=== PATIENT | male | born 1985 | race Caucasian/White ===

== ENCOUNTER 2024-04-17 02:58 | Emergency (ER) | payer MEDICAID ==
[~2024-04-17] VITALS: Ht 177.8 cm; Wt 134.0 kg
[2024-04-17 03:04] VITALS: O2SAT 98
[2024-04-17 03:06] VITALS: BP 155/95; PULSE 75; RESP 18; TEMP 98.5; O2SAT 97
[2024-04-17] MEDS ORDERED: ALBU18HF2 IH (05:33)
== END 2024-04-17 08:00 | disposition home or self-care (01) ==
LOC: ER 03:11
DX: R06.02 Shortness of breath (principal); E11.9 Type 2 diabetes mellitus without complications; I10 Essential (primary) hypertension
CPT/HCPCS: 99283

== ENCOUNTER 2024-04-22 20:51 | Emergency (ER) | payer MEDICAID ==
[~2024-04-22] VITALS: Ht 177.8 cm; Wt 140.5 kg
[~2024-04-22 20:51] MED LIST: ALBU18HF2 IH
[2024-04-23] MEDS: PREDNISONE 20MG TABLET PO ONE (00:30)
[2024-04-23] MEDS: ALBUTEROL (0.083%) 2.5MG/3ML NEB HHN ONE (00:59)
[2024-04-23 01:00] VITALS: PULSE 95; RESP 20; O2SAT 98
[2024-04-23 01:14] LABS: BASOPHILS % 0.5 % (0.0-2.0); EOSINOPHILS % 2.5 % (0.0-5.0); HEMATOCRIT. 43.4 % (42.0-52.0); HEMOGLOBIN. 14.5 g/dL (14.0-18.0); LYMPHOCYTES % 36.9 % (20.0-50.0); MEAN CORPUSCULAR HEMOGLOBIN 28.9 pg (28.0-32.0); MEAN CORPUSCULAR HGB CONC 33.5 g/dL (31.0-37.0); MEAN CORPUSCULAR VOLUME 86.2 fL (80.0-94.0); MEAN PLATELET VOLUME 10.3 fl (7.4-10.4); MONOCYTES % 12.1 % (2.0-8.0); PLATELET 152 x1000/uL (130-400); RED BLOOD CELL COUNT 5.03 mill/uL (4.7-6.1); RED CELL DISTRIBUTION WIDTH 13.7 % (11.6-14.6); WHITE BLOOD COUNT 5.1 x1000/uL (4.5-11.0)
[2024-04-23 01:17] LABS: CHLORIDE 105 mEq/L (98-107); POTASSIUM 3.6 mEq/L (3.5-5.1); SODIUM 141 mEq/L (136-145)
[2024-04-23 01:18] LABS: CARBON DIOXIDE 28 mEq/L (21-32)
[2024-04-23 01:23] LABS: CREATININE 0.8 mg/dL (0.6-1.3)
[2024-04-23 01:24] LABS: GLUCOSE 154 mg/dL (70-105); UREA NITROGEN BLOOD 12 mg/dL (9-23)
[2024-04-23] MEDS ORDERED: P50 MT (03:08)
[2024-04-23] MEDS ORDERED: FLUT1AER5 INH (03:08)
[2024-04-23 03:43] VITALS: BP 159/98; PULSE 78; RESP 18; TEMP 37.11408; O2SAT 98
== END 2024-04-23 03:43 | disposition home or self-care (01) ==
LOC: ER 20:51
DX: J98.01 Acute bronchospasm (principal); J40 Bronchitis, not specified as acute or chronic; E11.9 Type 2 diabetes mellitus without complications; I10 Essential (primary) hypertension; Z20.822 Contact with and (suspected) exposure to COVID-19
CPT/HCPCS: 99285; 80048; 83880; 85025; 87804 ×2; 36415; 71045; 94640; 94070; 98960; 87426; J7512; Z7610 ×3; 94664

== ENCOUNTER 2024-05-08 18:14 | Emergency (ER) | payer MEDICAID ==
[~2024-05-08] VITALS: Ht 177.8 cm; Wt 121.0 kg
[~2024-05-08 18:14] MED LIST changes: +FLUT1AER5 INH; +P50 MT
[2024-05-08] MEDS: IPRATROPIUM/ALBUTEROL 0.5-3(2.5)MG/3ML NEB HHN ONE (19:48)
[2024-05-08 19:49] VITALS: PULSE 80; RESP 16; O2SAT 98
[2024-05-08 20:22] LABS: CLARITY URINE CLEAR (CLEAR); COLOR URINE YELLOW (YELLOW); GLUCOSE URINE 3+ (NEGATIVE); KETONES URINE NEGATIVE (NEGATIVE); LEUKOCYTE ESTERASE URINE NEGATIVE (NEGATIVE); NITRITE URINE NEGATIVE (NEGATIVE); OCCULT BLOOD URINE NEGATIVE (NEGATIVE); PH URINE 5.5 (4.5-8.0); PROTEIN URINE 2+ (NEGATIVE); SPECIFIC GRAVITY URINE 1.018 (1.005-1.030); UROBILINOGEN URINE 0.2 E.U./dL (0.2-1.0)
[2024-05-08 20:31] LABS: BASOPHILS % 0.4 % (0.0-2.0); EOSINOPHILS % 0.5 % (0.0-5.0); HEMATOCRIT. 39.4 % (42.0-52.0); HEMOGLOBIN. 13.2 g/dL (14.0-18.0); MEAN CORPUSCULAR HEMOGLOBIN 28.7 pg (28.0-32.0); MEAN CORPUSCULAR HGB CONC 33.4 g/dL (31.0-37.0); MEAN CORPUSCULAR VOLUME 85.9 fL (80.0-94.0); MEAN PLATELET VOLUME 10.4 fl (7.4-10.4); MONOCYTES % 11.5 % (2.0-8.0); NEUTROPHILS % 72.6 % (40.0-76.0); PLATELET 173 x1000/uL (130-400); RED BLOOD CELL COUNT 4.59 mill/uL (4.7-6.1); RED CELL DISTRIBUTION WIDTH 13.6 % (11.6-14.6); WHITE BLOOD COUNT 15.8 x1000/uL (4.5-11.0)
[2024-05-08 20:36] LABS: CHLORIDE 99 mEq/L (98-107); POTASSIUM 3.6 mEq/L (3.5-5.1); SODIUM 133 mEq/L (136-145)
[2024-05-08 20:37] LABS: CALCIUM 9.5 mg/dL (8.7-10.4); CARBON DIOXIDE 25 mEq/L (21-32)
[2024-05-08 20:40] LABS: INR 0.9; PROTHROMBIN TIME 10.1 sec (9.6-11.0)
[2024-05-08 20:42] LABS: GLUCOSE 180 mg/dL (70-105); TROPONIN I HIGH SENSITIVITY 7 ng/L (3.0-53); UREA NITROGEN BLOOD 13 mg/dL (9-23)
[2024-05-08 20:45] LABS: RBC URINE NONE SEEN /hpf (0-2); WBC URINE NONE SEEN /hpf (0-2)
[2024-05-08 20:46] LABS: BACTERIA URINE NONE SEEN; SQUAMOUS EPITHELIAL CELL URINE RARE /lpf (RARE/1+)
[2024-05-08] MEDS: DEXAMETHASONE 10 MG/ML VIAL PO ONE (22:10)
[2024-05-08] MEDS: DEXAMETHASONE 4MG TABLET PO NR (22:20)
[2024-05-09] MEDS ORDERED: LEVO750T68 MT (02:13)
[2024-05-09] MEDS: CEFTRIAXONE 2GM/50ML 50 ML IV ONE (02:38)
[2024-05-09] MEDS: DOXYCYCLINE HYCLATE 100MG CAPSULE PO ONE (02:38)
[2024-05-09 03:07] VITALS: BP 116/69; PULSE 90; RESP 16; TEMP 37.55856; O2SAT 98
[2024-05-09] MEDS ORDERED: IOHEXOL-350 100 ML BOTTLE ONE (04:13)
== END 2024-05-09 03:08 | disposition home or self-care (01) ==
LOC: ER 18:14
DX: J18.9 Pneumonia, unspecified organism (principal); E11.9 Type 2 diabetes mellitus without complications; I10 Essential (primary) hypertension; Z79.52 Long term (current) use of systemic steroids; Z79.51 Long term (current) use of inhaled steroids
CPT/HCPCS: 80048; 81003; 83880; 85025; 85379; 85610; 84484; 36415; 71045; 94640; 93005; 99285; 71275; 96365; J8540; Z7610 ×4; Q9967; J0696

== ENCOUNTER 2024-05-25 20:37 | Emergency (ER) | payer MEDICAID ==
[~2024-05-25] VITALS: Ht 177.8 cm; Wt 132.0 kg
[~2024-05-25 20:37] MED LIST changes: +LEVO750T68 MT
[2024-05-25] MEDS: IPRATROPIUM BROMIDE (0.02%) 0.5MG/2.5ML NEB HHN STA (23:29)
[2024-05-25] MEDS: ALBUTEROL (0.083%) 2.5MG/3ML NEB HHN STA (23:29)
[2024-05-25] MEDS: DEXAMETHASONE 4MG/ML 1ML VIAL IV ONE (23:49)
[2024-05-26 00:17] VITALS: PULSE 97; RESP 21; O2SAT 95
[2024-05-26] MEDS ORDERED: D-ME473S50 PO (01:04)
[2024-05-26] MEDS ORDERED: ALBU18HF2 IH (01:04)
[2024-05-26 01:17] VITALS: BP 131/97; PULSE 110; RESP 20; TEMP 37.11408; O2SAT 97
== END 2024-05-26 01:18 | disposition home or self-care (01) ==
LOC: ER 20:37
DX: J20.9 Acute bronchitis, unspecified (principal); I10 Essential (primary) hypertension; Z79.52 Long term (current) use of systemic steroids; Z79.51 Long term (current) use of inhaled steroids; Z79.899 Other long term (current) drug therapy
CPT/HCPCS: 71045; 96374; 99285; 94640; J1100; Z7610 ×3